=== PATIENT | female | born 1955 | race American Indian/Alaskan Native ===

== ENCOUNTER 2016-03-24 08:47 | Day surgery (SDC) | payer OTHER ==
[2016-03-24] MEDS ORDERED: DIPRIVAN 10 MG/ML IV ONE ×2 (09:15)
[2016-03-24] MEDS ORDERED: WATER FOR IRRIG STERILE IR ONE (09:16)
--- NOTE | 2016-03-24 09:58 | Anesthesia Consultation ---
Anesthesia Consult and Med Hx Date of service: 03/24/16 - Airway Anesthetic Teeth Evaluation: Good ROM Head & Neck: Adequate Mental/Hyoid Distance: Adequate Intubation Access Assessment: Good - Pulmonary Exam CTA: Yes - Cardiac Exam Cardiac Exam: RRR - Pre-Operative Health Status ASA Pre-Surgery Classification: ASA3 Proposed Anesthetic Plan: MAC - Pulmonary Hx Respiratory Symptoms: (sinus congestion) - Cardiovascular System Hx Hypertension: Yes - Gastrointestinal Hx Gastroesophageal Reflux Disease: Yes (no symptoms today) - Endocrine Hx Non-Insulin Dependent Diabetes: Yes (diet controlled)
--- NOTE | 2016-03-24 09:58 | Anesthesia Day of Surgery ---
Anesthesia Day of Surgery - Day of Surgery Patient Examined: Yes Patient H&P Reviewed: Yes Patient is NPO: Yes
[2016-03-24] MEDS ORDERED: NACL 0.9% 1000 ML 1,000 ML IV SCH (10:00)
[2016-03-24] MEDS ORDERED: ROBINUL ONE (10:19)
[2016-03-24] MEDS ORDERED: XYLOCAINE MPF 2% ONE (10:19)
--- NOTE | 2016-03-24 10:46 | Short Stay Summary ---
Short Stay Documentation Date of service: 03/24/16 Narrative H&P: The patient presents for EGD and dilation due for dysphagia. - History Past Medical History: diabetes, GERD, hypertension Past Surgical History: , Other (joint surgery) Social history: no significant social history, no smoking, no alcohol abuse, no prescription drug abuse - Allergies and Medications Current Medications: Allergies acetaminophen [From Percocet] Adverse Reaction (Verified 03/24/16 09:18) Nausea erythromycin lactobionate [From Erythrocin] Adverse Reaction (Verified 03/24/16 09:18) Rash/REDNESS morphine Adverse Reaction (Verified 03/24/16 09:18) Rash oxycodone HCl [From Percocet] Adverse Reaction (Verified 03/24/16 09:18) Nausea Penicillins Adverse Reaction (Verified 03/24/16 09:18) Swelling tetracycline Adverse Reaction (Verified 03/24/16 09:18) Rash,SWELLING Active Medications Sodium Chloride (Nacl 0.9% 1000 Ml) 1,000 mls @ 50 mls/hr IV DIRECT SHARLENE Last Admin: 03/24/16 09:50 Dose: 50 mls/hr - Physical exam General appearance: no acute distress, well-nourished Integumentary: no rash, no growths, no abnormal pigmentation HEENT: Atraumatic, PERRLA, EOMI, Mucous membr. moist/pink Lungs: Clear to auscultation, Normal air movement Breasts: deferred Heart: Regular rate, Normal S1, Normal S2, No murmurs Gastrointestinal: normoactive bowel sounds, no tenderness, no distended, no masses, no guarding, no organomegaly Female Genitourinary: deferred Rectal Exam: deferred Extremities: no ischemia, pulses intact, pulses symmetrical, No edema, normal temperature, normal color, Full ROM Neurological: Normal gait, Normal speech, Strength at 5/5 X4 ext, Normal tone, Sensation intact, Cranial nerves 3-12 NL - Brief post op/procedure progress note Date of procedure: 03/24/16 Findings: see dictated report Estimated blood loss: none Pathology: list (biopsies of distal esophagus at Z line) Specimen disposition: to lab Condition: stable - Disposition Condition at discharge: Good Disposition: DISCHARGED TO HOME OR SELFCARE - Discharge Diagnoses (1) Dysphagia Status: Acute Short Stay Discharge Plan Activity: other (no driving for 24 hours) Weight Bearing Status: Full Weight Bearing Diet: regular
--- NOTE | 2016-03-24 10:50 | Operative Report ---
Operative Report Operative Report: Date of procedure: 03/24/2016 Procedure: Esophagogastroduodenoscopy with biopsies and dilation of the esophagus- Stallings 44 and 50 [place] dilators Preprocedure diagnosis: Dysphagia to solids and liquids and gastroesophageal reflux. Post procedure diagnosis: Probable mild peptic stricture. Irregular Z line. Normal stomach and duodenum. Endoscopist: Dr. Felder Anesthesia: Monitored anesthesia care per anesthesia department Medications: Propofol per anesthesia Estimated blood loss: 0 After careful discussion of the nature and purpose of the procedure as well as details the technique risks benefits and alternatives consent was obtained. The patient was placed in the left lateral decubitus position and medicated per anesthesia. The tip of the lucierna EQ 570 video scope was passed per orum under direct vision into the esophagus and advanced into the stomach and descending duodenum. The descending duodenum the duodenal bulb and pylorus were symmetrical and normal. The scope was withdrawn into the stomach and the stomach then gently insufflated with air. The antrum was normal. The stomach was further insufflated and the scope was then retroflexed and partially withdrawn. The cardia, fundus, and body of the stomach were within normal limits and easily distensible.The scope was then withdrawn in the forward position. The esophagogastric junction was at or 2 cm. The Z line was irregular. 2 biopsies were taken at the Z line to assess for possible short segment Cuellar's. There is no definite narrowing although a mild peptic stricture could not be excluded.. The esophageal body was normal throughout. Esophageal dilation was performed with 44 followed by 50 [place] dilators with mild resistance at each passage. The procedure was was well tolerated and the patient was observed in recovery. Impressions: Able mild peptic stricture. Irregular Z line consistent with reflux. Rule out short segment Cuellar's. Status post dilation to 50 [place] Plan: Redilate when necessary. Await pathology. The patient will call the office within 10 working days to discuss the pathology. Electronically signed: Ryan Felder MD
[2016-03-24 11:27] VITALS: BP 115/67
--- NOTE | 2016-03-24 12:21 | Post Anesthesia Evaluation ---
- Post Anesthesia Evaluation Patient Participated: Yes Airway Patent: Yes Stable Respiratory Function: Yes Temp > 96.8F: Yes Pain Manageable: Yes Adequeate Hydration: Yes Anesthesia Complications: No Block Receding Appropriately: Not Applicable
== END 2016-03-24 08:48 | disposition home or self-care (01) ==
LOC: GIO 08:47
PROVIDERS: ATTEND Internal Medicine Gastroenterology
DX: K21.0 Gastro-esophageal reflux disease with esophagitis (principal); K22.2 Esophageal obstruction; I10 Essential (primary) hypertension; E11.9 Type 2 diabetes mellitus without complications; Z96.651 Presence of right artificial knee joint
CPT/HCPCS: 43239; 43450; 82962; 88305; J2704; J7030